=== PATIENT | female | born 1990 | race Caucasian/White ===

== ENCOUNTER 2023-04-17 03:02 | Inpatient (IN) ==
[2023-04-17] MEDS ORDERED: LACTATED RINGER'S 1,000 ML IV SCH ×2 (03:45→04:45)
[2023-04-17] MEDS ORDERED: TERBUTALINE SULFATE 1 MG/ML VIAL SQ STA (03:45)
[2023-04-17] MEDS ORDERED: CITRIC ACID/SODIUM CITRATE 15 ML UDC PO ONE (03:45)
--- NOTE | 2023-04-17 03:45 | History & Physical Report ---
Date of Service April 17, 2023 Assessment & Plan (1) Breech presentation: (2) Normal labor: (3) 38 weeks gestation of : Plan need to proceed with stat c/s. consent reviewed and signed. History of Present Illness Chief Complaint: rom Primary Care Provider: González Ayala, DO 33yo at 38+wks ega presents to L&D with rom and breech presentation for planned c/s. Called this am, noting leaking alot of yellow/green fluid, cramps only. Came into hospital noting more intense ctx and 5-6cm per nurse with gross rom. PNC c/b 1.ama, 2. breech 3. obesity 4. Depression on meds 5. rubella vaccine needed 6. hypothyroid PNL rhpos, ri, gbs neg Allergies Allergy/AdvReac Type Severity Reaction Status Date / Time No Known Allergies Allergy Verified 04/13/23 15:12 Home Medications Medication Instructions Recorded Confirmed Type bupropion HCl 150 mg 24 hr tablet, 300 mg PO QAM 09/26/22 04/17/23 History extended release prenat.vits,ashlee,[id number] 1 tab PO DAILY 09/26/22 04/17/23 History fluoxetine 20 mg capsule (Prozac) 60 mg PO DAILY 01/03/23 04/17/23 History levothyroxine 100 mcg tablet 100 mcg PO .COMPLEX #45 tabs 04/13/23 04/17/23 Rx Patient History Medical History Depression Encounter for IUD insertion Endometriosis IUD (intrauterine device) in place Surgical History Cholecystectomy planned H/O wisdom tooth extraction S/P laparoscopic procedure Family History Mother Kidney disease Hypertension Dyslipidemia Father Hypertension Denies family history of Ovarian cancer Prostate cancer Myocardial infarction Breast cancer Colorectal cancer Uterine cancer Social History Smoking Status: Never smoker Second Hand Exposure: No; Do You Dip or Chew Tobacco: No; Hx Alcohol Use: No Hx Substance Use: No Preferred Language: Kosovan Communication Ability: Effective Visual Impairment: No Limitations Hearing Ability: Normal Summer School Coordinator Required: No Beliefs That Will Affect Care: None marital status: Single marital status details: Joey (40) [phone] Current Living Situation: Significant Other Current Living Situation Comment: lives alone 1 dog, 1 cat, current occupational status: employed 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 Other Information That Helps Us Care for You: No Feels Safe at Home: Yes Safety Concerns: Feels Safe At This Time Childhood Exposure to Second-Hand Smoke: No Diet: Weight Watchers caffeine: Yes during the past year weight has: increased > 10 lbs Dental Care, Regularly: Yes Physical Activity Frequency: Does not Exercise Seatbelt Use: always Sunscreen Use: Yes Do you think of yourself as: straight/heterosexual Assistive Devices: None Review of Systems as per Subjective / HPI Physical Exam Constitutional: WD/WN, vitals as above Respiratory: normal respiratory effort, lungs clear to auscultation Cardiovascular: Rate/Rhythm: regular rate and regular rhythm Gastrointestinal (Abdomen): soft gravid nt Musculoskeletal: tr edema nontender calves Neurologic: grossly normal Psychiatric: A+Ox3, euthymic affect Genitourinary: Manual OB Exam: + cervical dilation (breech) 8 cm OB Exam Monitor Tracing: + external FHT monitor used, + external uterine monitor used, + category I and + normal FHT variability Results & Data Vital Signs (Past 12 Hours) Vital Signs Pulse Resp BP 04/17/23 03:24 20 04/17/23 03:18 79 154/72 H Coding Level of Care Code None Diagnoses Breech presentation O32.1XX0 Normal labor O80; Z37.9 38 weeks gestation of Z3A.38
[2023-04-17] MEDS ORDERED: TERBUTALINE SULFATE 1 MG/ML VIAL ONE (03:47)
[2023-04-17] MEDS ORDERED: fentaNYL citrate PF 100 MCG/2 ML VIAL ONE ×2 (03:55→04:14)
[2023-04-17 04:12] LABS: Basophils # (auto) 0.04 K/uL (0.00-0.20); Basophils % (auto) 0.4 %; Eosinophils # (auto) 0.06 K/uL (0.00-0.50); Eosinophils % (auto) 0.5 %; Hematocrit (blood only) 34.9 % (37.0-47.0); Hemoglobin 11.7 g/dl (12.0-16.0); Immature Granulocytes # (auto) 0.03 K/uL (0.01-0.20); Immature Granulocytes % (auto) 0.3 %; Lymphocytes # (auto) 2.29 K/uL (1.20-3.40); Lymphocytes % (auto) 20.8 %; Mean Corpuscular Hemoglobin 29.8 pg (25.0-34.0); Mean Corpuscular Hgb Conc 33.5 g/dL (32.0-36.0); Mean Platelet Volume 12.5 fL (9.4-12.4); Monocytes # (auto) 0.73 K/uL (0.11-0.59); Monocytes % (auto) 6.6 %; Neutrophils # (auto) 7.84 K/uL (1.40-6.50); Neutrophils % (auto) 71.4 %; Platelet Count 257 K/uL (130-400); RDW Coefficient of Variation 14.3 % (11.5-14.5); RDW Standard Deviation 46.5 fL (36.4-46.3); Red Blood Count 3.92 M/uL (4.20-5.40); White Blood Count 10.99 K/ul (4.8-10.8)
[2023-04-17] MEDS ORDERED: OXYTOCIN 10 UNITS/ML VIAL ONE (04:15)
[2023-04-17] MEDS ORDERED: PROPOFOL IV EMULSION 10 MG/ML 20 ML VIAL IV ONE (04:15)
[2023-04-17] MEDS ORDERED: ONDANSETRON INJ 2 MG/ML 2 ML VIAL ONE (04:15)
[2023-04-17] MEDS ORDERED: SUCCINYLCHOLINE CHLORIDE 20 MG/ML 10 ML VIAL IV ONE (04:15)
[2023-04-17] MEDS ORDERED: PROMETHAZINE HCL 6.25 MG in SODIUM CHLORIDE 0.9% 50 ML IV PRN (04:16)
[2023-04-17] MEDS ORDERED: ePHEDrine sulfate 50 MG/ML AMP IV PRN (04:16)
[2023-04-17] MEDS ORDERED: ONDANSETRON INJ 2 MG/ML 2 ML VIAL IV PRN ×2 (04:16→05:09)
[2023-04-17] MEDS ORDERED: fentaNYL citrate PF 100 MCG/2 ML VIAL IV PRN (04:16)
[2023-04-17] MEDS ORDERED: ATROPINE SULFATE 0.1 MG/ML 10ML SYR IV PRN (04:16)
[2023-04-17] MEDS ORDERED: HYDROmorphone INJ 1 MG/ML SYRINGE IV PRN (04:16)
--- NOTE | 2023-04-17 04:16 | Anesthesiology Consultation ---
Date of Service April 17, 2023 Assessment & Plan (1) Encounter for pre-operative examination: Chart Review Chart Review: Acceptable Risk for Surgery and Patient NOT seen in Pre Admission Testing Consults Requested none History Surgery Operation Date: 04/17/23 03:25 Proposed Procedures p Section in LD - Shirin James MD, FACOG Height/Weight Height: 5 ft 6 in Weight: 132.449 kg Allergies Allergy/AdvReac Type Severity Reaction Status Date / Time No Known Allergies Allergy Verified 04/13/23 15:12 Medications Home Medications Medication Instructions Recorded Confirmed Last Taken bupropion HCl 150 mg 24 hr tablet, 300 mg PO QAM 09/26/22 04/17/23 04/16/23 extended release 0800 prenat.vits,ashlee,[id number]-[id number] 1 tab PO DAILY 09/26/22 04/17/23 04/16/23 08:00 fluoxetine 20 mg capsule (Prozac) 60 mg PO DAILY 01/03/23 04/17/23 04/16/23 0800 levothyroxine 100 mcg tablet 100 mcg PO .COMPLEX #45 tabs 04/13/23 04/17/23 04/16/23 0800 Active Medications Generic Name Dose Route Start Last Admin Trade Name Freq PRN Reason Stop Dose Admin Cefazolin Sodium 72.5 mls @ 130 mls/hr 04/17/23 03:45 04/17/23 03:48 Ancef 3000mg IV 04/17/23 04:18 130 mls/hr ONE ONE Administration Protocol Lactated Ringer's 1,000 mls @ 125 mls/hr 04/17/23 04:45 04/17/23 03:48 Lr IV 05/17/23 04:44 999 mls/hr .Q8H KM Administration Past Medical History Medical History Depression Encounter for IUD insertion Encounter for pre-operative examination Endometriosis IUD (intrauterine device) in place Ericka 06/2019 Exercise / Class Metabolic Activity II 4-5 Yardwork/Stairs/Walk up hill Past Family History Family History Mother Kidney disease Hypertension Dyslipidemia Father Hypertension Denies family history of Ovarian cancer Prostate cancer Myocardial infarction Breast cancer Colorectal cancer Uterine cancer Past Surgical History Surgical History Cholecystectomy planned H/O wisdom tooth extraction S/P laparoscopic procedure endometriosis and left pelvic wall mass removal - records in [facility]scripts Social History Smoking Status: Never smoker Do You Dip or Chew Tobacco: No Hx Alcohol Use: No Hx Substance Use: No Physical Exam Vital Signs Last Vital Signs Temp 36.8 C 04/17/23 03:31 Pulse 79 04/17/23 03:18 Resp 18 04/17/23 03:31 BP 154/72 H 04/17/23 03:18 Testing Laboratory Results 04/17/23 03:55
[2023-04-17] MEDS ORDERED: SODIUM CHLORIDE 0.9% 250 ML IV PRN (04:35)
[2023-04-17] MEDS ORDERED: KETOROLAC 30 MG/ML VIAL ONE (04:35)
[2023-04-17] MEDS ORDERED: ALBUTEROL HFA 8 GM INHALER INH ONE (04:36)
--- NOTE | 2023-04-17 04:45 | Post Operative Brief Note ---
PG Immediate Post Op with CF Date of Surgery April 17, 2023 Pre & Post Diagnosis Operation Date: 04/17/23 03:25 <No data on this case meets the specified criteria> 1. 38 week iup 2. Breech presentation 3. SROM 4. Active Labor I identified the patient and participated in the time-out.: Yes Procedure Operation Date: 04/17/23 03:25 <No data on this case meets the specified criteria> Primary Low Transverse Section. Surgeon Shirin James MD, FACOG Radiology Therapist RN Estimated Blood Loss 600 Findings Consistent with Post-Op Diagnosis (viable female apgars pending. normal uterus tubes and ovaries bilaterally) Fluids 1000 Specimens Specimen Description: Placenta- hold cord blood Drains Do Catheter Anesthesia Type General Complications none Disposition Accompanied Patient To Recovery: No Disposition: L&D
--- NOTE | 2023-04-17 05:07 | Operative Report ---
PG Post Operative Report Pre & Post Diagnosis Operation Date: 04/17/23 03:25 <No data on this case meets the specified criteria> 1. 38+wks iup 2. Breech presentation 3. SROM 4. Rapid active labor I identified the patient and participated in the time-out.: Yes Procedure Operation Date: 04/17/23 03:25 <No data on this case meets the specified criteria> Primary Low Transverse Section Surgeon Shirin James MD, FACOG Feedmobile Driver RN Estimated Blood Loss 600 Findings Consistent with Post-Op Diagnosis (viable female apgars 7,9 normal uterus tubes and ovaries bilaterally) Fluids 1000 Specimens cord blood Drains gould Anesthesia Type General Complications none Disposition Accompanied Patient To Recovery: No Disposition: L&D Indications 33yo at 38wks with srom and labor and breech presentation, rapidly dilating, for stat section. Due to her rapid labor, im terbutaline was given prior to going to OR. Description of Procedure The patient was taken to the operating room and identified. A gould was placed and she was prepped and draped in the usual sterile fashion. Once induction of a nesthesia begun and ok from anesthesia to proceed, the knife was used to create a Pfannensteil skin incision that was carried down to the underlying layer of fascia. The fascia was nicked in the midline and this opening was extended laterally using Vernon scissors. Eric clamps were placed on the superior and inferior aspect of the fascial incision tenting it upward and the underlying rectus muscles were dissected off the overlying fascia both sharply and bluntly using Vernon scissors. The rectus muscles were bluntly in the midline. The peritoneal cavity was bluntly entered into. This opening was stretched. The bladder blade was placed. The vesicouterine peritoneum was elevated and opened up into and the bladder flap was created digitally and bladder blade was replaced. The knife was used to create a hysterotomy and this opening was stretched. The operators hand was placed through the hysterotomy and the bladder blade was removed. The buttocks was elevated and with fundal pressure was delivered to level of the scapulae. The arms were swept across the anterior midline and the head was flexed and delivered. Meconium stained fluid noted. The cord was clamped and cut and the infant's mouth and nares were bulb suction. The infant was handed off to the awaiting pediatricians. Cord blood was obtained. The placenta was manually expressed. The uterus was exteriorized and cleared of all clots and debris. Dilute IV Pitocin was begun. The uterine tone was improving but still boggy and so im hemabate given into uterine muscle after bp checked. The hysterotomy was closed in a running interlocking fashion using 0 Vicryl followed by a second imbricating layer of 0 Vicryl. The hysterotomy was not hemostatic at the right corner where an additional figure of eight suture of 2-0 vicryl was placed for excellent hemostasis. The pelvis was suctioned for any fluid/blood. The uterus was returned to the abdomen. The gutters were cleared of all clots and debris. The hysterotomy was reinspected and noted to be hemostatic. The fascia was then closed in running fashion using 0 Vicryl. The subcutaneous fat was copiously irrigated and reapproximated using 2-0 chromic. The skin was closed in a subcuticular fashion using 4-0 monocryl. At this point the procedure was terminated. The patient was extubated and transferred to the recovery room in stable condition. All sponge, lap and needle counts are correct x2. I attest to the content of the Intraoperative Record and any orders documented therein. Any exceptions are noted below. OB Procedure Charges 95657
[2023-04-17] MEDS ORDERED: SENNA 8.6 MG TAB PO PRN (05:09)
[2023-04-17] MEDS ORDERED: oxyCODONE/ACETAMINOPHEN 5mg/325mg TAB PO PRN (05:09)
[2023-04-17] MEDS ORDERED: MAGNESIUM HYDROXIDE SUSP 30 ML UDC PO PRN (05:09)
[2023-04-17] MEDS ORDERED: MEASLES, MUMPS & RUBELLA VIRUS VIAL SQ ONE (05:09)
[2023-04-17] MEDS ORDERED: BENZOCAINE 20% SPRY 85 APPLN/85 GM CAN EXT PRN (05:09)
[2023-04-17] MEDS ORDERED: PROMETHAZINE HCL 25 MG in SODIUM CHLORIDE 0.9% 50 ML IV PRN (05:09)
[2023-04-17] MEDS ORDERED: diphenhydrAMINE Capsule 25 MG CAP PO PRN (05:09)
[2023-04-17] MEDS ORDERED: diphenhydrAMINE 50 MG/ML VIAL IV PRN (05:09)
[2023-04-17] MEDS ORDERED: HYDROCORTISONE ACETATE 25 MG SUPP PR PRN (05:09)
[2023-04-17] MEDS ORDERED: ZOLPIDEM TARTRATE 5 MG TAB PO PRN (05:09)
[2023-04-17] MEDS ORDERED: NALOXONE HCL 0.4 MG/1 ML VIAL/CARP IV PRN (05:09)
[2023-04-17] MEDS ORDERED: SODIUM CHLORIDE 0.9% 1000ML 1,000 ML IV SCH (05:09)
[2023-04-17] MEDS ORDERED: DIPHTHERIA/TETANUS/PERTUSSIS Vaccine (Tdap, Age 7+yrs) 0.5mL SYR/VL IM ONE (05:09)
--- NOTE | 2023-04-17 05:09 | Anesthesiology Progress Note ---
Date of Service April 17, 2023 Anesthesia Post Procedure Vital Signs Vital Signs: Temp Pulse Resp BP Pulse Ox 04/17/23 03:24 20 04/17/23 05:04 76 120/58 L 04/17/23 05:03 78 100 04/17/23 04:58 80 96 04/17/23 04:53 82 130/77 96 04/17/23 03:31 18 04/17/23 03:31 36.8 C 18 04/17/23 03:18 79 154/72 H Transfer of Care Handoff Completed per policy Notes Mental Status: alert / awake / arousable and participated in evaluation Patient Amnestic to Procedure: Yes Nausea / Vomiting: adequately controlled Pain: adequately controlled Airway Patency, RR, SpO2: stable & adequate BP & HR: stable & adequate Hydration State: stable & adequate Anesthetic Complications: no major complications apparent and Pt Satisfied with anesthetic care
[2023-04-17] MEDS: OXYTOCIN 20 UNITS in LACTATED RINGER'S 1,000 ML IV SCH ×2 (05:25→14:01)
[2023-04-17] MEDS: HYDROmorphone PCA 30 MG/30 ML IV PRN ×2 (05:42→07:04)
[2023-04-17] MEDS: LEVOTHYROXINE SODIUM 100 MCG TABLET PO SCH (08:31)
[2023-04-17] MEDS: PRENATAL VITAMIN 1 TAB PO SCH (08:48)
[2023-04-17] MEDS: FERROUS SULFATE 325 MG TAB PO SCH (08:48)
[2023-04-17] MEDS: DOCUSATE SODIUM 100 MG CAP PO SCH ×2 (08:48→20:38)
[2023-04-17] MEDS: buPROPion XL 300 MG TABCR PO SCH (08:49)
[2023-04-17] MEDS: SIMETHICONE 80 MG CHEW PO SCH ×4 (08:49→20:38)
[2023-04-17] MEDS: FLUoxetine HCL 20 MG CAP PO SCH (08:49)
[2023-04-17] MEDS: IBUPROFEN 600 MG TAB PO PRN (20:37)
--- NOTE | 2023-04-18 01:47 | Obstetrical Progress Note ---
Date of Service April 18, 2023 Assessment & Plan (1) S/P : Plan: encourage ambulation pain control Admission and Anticipated Discharge Date Admission Date: April 17, 2023 Supervising Physician Co-Signing Physician Notes Patient seen with resident and agree with the above findings and plan. Routine care Subjective 33 yo PMHx hypothyroidism, depression post day 1 s/p Ambulation: ambulating normally Voiding: no voiding problems Passing Gas:: Yes Diet Tolerance:: regular diet Lochia:: Small Feeding Type:: breast feeding Current Pain Level: minimal Resting comfortably this am. Denies HUMPHREY, CP, SOB, N/V/D, LE swelling Review of Systems Review of Systems: reviewed, per hpi Physical Exam Physical Exam: General: patient resting comfortably, NAD, non-toxic in appearance, AA&O x 4, answers questions appropriately. Skin: warm, dry, intact HEENT: NC/AT, anicteric sclera, conjunctiva without injection, moist mucus membranes. Lungs: equal air entry bilaterally, no rales/rhonchi/wheezes Abd: +BS, soft, NT/ND, uterine fundus firm at umbilicus, caesarean incision C/D/I Ext: warm, no clubbing/cyanosis or edema, Melody's neg Neuro: nonfocal, patient AA&O x 4, speech intact, no facial droop, moving all extremities on command. Results & Data Vital Signs (Past 12 Hours) Vital Signs Temp Pulse Resp BP BP Pulse Ox O2 Del Method 04/17/23 23:12 37 C 88 18 113/75 99 Room Air 04/17/23 20:20 37.3 C 88 18 123/78 96 Room Air 04/17/23 18:15 18 92 04/17/23 17:15 16 93 04/17/23 16:20 18 96 04/17/23 15:20 37.5 C 89 16 119/79 Room Air 04/17/23 15:20 18 92 04/17/23 14:05 18 92 Resident Activity Tracking Resident Involvement: Resident Care Provided Care Provided: Adult Hospital Medicine
[2023-04-18] MEDS: IBUPROFEN 600 MG TAB PO PRN ×4 (04:03→20:14)
[2023-04-18 06:50] LABS: Basophils # (auto) 0.03 K/uL (0.00-0.20); Basophils % (auto) 0.3 %; Eosinophils # (auto) 0.05 K/uL (0.00-0.50); Eosinophils % (auto) 0.5 %; Hematocrit (blood only) 27.1 % (37.0-47.0); Hemoglobin 8.9 g/dl (12.0-16.0); Immature Granulocytes # (auto) 0.04 K/uL (0.01-0.20); Immature Granulocytes % (auto) 0.4 %; Mean Corpuscular Hemoglobin 29.3 pg (25.0-34.0); Mean Corpuscular Hgb Conc 32.8 g/dL (32.0-36.0); Mean Corpuscular Volume 89.1 fL (80.0-100.0); Mean Platelet Volume 11.8 fL (9.4-12.4); Monocytes # (auto) 0.57 K/uL (0.11-0.59); Monocytes % (auto) 5.7 %; Neutrophils # (auto) 8.14 K/uL (1.40-6.50); Neutrophils % (auto) 81.1 %; Platelet Count 207 K/uL (130-400); RDW Coefficient of Variation 14.4 % (11.5-14.5); RDW Standard Deviation 46.7 fL (36.4-46.3); Red Blood Count 3.04 M/uL (4.20-5.40); White Blood Count 10.03 K/ul (4.8-10.8)
[2023-04-18] MEDS: LEVOTHYROXINE SODIUM 100 MCG TABLET PO SCH (06:57)
[2023-04-18] MEDS: PRENATAL VITAMIN 1 TAB PO SCH (07:58)
[2023-04-18] MEDS: SIMETHICONE 80 MG CHEW PO SCH ×4 (07:58→20:14)
[2023-04-18] MEDS: DOCUSATE SODIUM 100 MG CAP PO SCH ×2 (07:58→20:14)
[2023-04-18] MEDS: buPROPion XL 300 MG TABCR PO SCH (07:58)
[2023-04-18] MEDS: FERROUS SULFATE 325 MG TAB PO SCH (07:58)
[2023-04-18] MEDS: FLUoxetine HCL 20 MG CAP PO SCH (07:59)
[2023-04-19] MEDS ORDERED: bisacodyL 10 MG SUPP PR PRN (04:55)
--- NOTE | 2023-04-19 06:00 | Obstetrical Progress Note ---
Date of Service April 19, 2023 Assessment & Plan (1) S/P : Plan: encourage ambulation pain control d/c today Admission and Anticipated Discharge Date Admission Date: April 17, 2023 Supervising Physician Co-Signing Physician Notes Resident Physician Supervision Note: I interviewed and examined the patient. Discussed with Dr. Rob and agree with findings and plan as documented in the note. Any exceptions or clarifications are listed here: POD2 doing well. Desires DC home today. Has been using ibuprofen/tylenol during hospital stay, and does not desire an Rx for opioid pain medication. Reviewed postop instructions, followup 6w PP. Documented By: Orin Ryan, Subjective 33 yo PMHx hypothyroidism, depression post day 2 s/p Ambulation: ambulating normally Voiding: no voiding problems Passing Gas:: Yes Diet Tolerance:: regular diet Lochia:: Small Feeding Type:: breast feeding Current Pain Level: minimal Resting comfortably this am. Denies HUMPHREY, CP, SOB, N/V/D, LE swelling Review of Systems Review of Systems: reviewed, per hpi Physical Exam Physical Exam: General: patient resting comfortably, NAD, non-toxic in appearance, AA&O x 4, answers questions appropriately. Skin: warm, dry, intact HEENT: NC/AT, anicteric sclera, conjunctiva without injection, moist mucus membranes. Lungs: equal air entry bilaterally, no rales/rhonchi/wheezes Abd: +BS, soft, NT/ND, uterine fundus firm at umbilicus, caesarean incision C/D/I Ext: warm, no clubbing/cyanosis or edema, Melody's neg Neuro: nonfocal, patient AA&O x 4, speech intact, no facial droop, moving all extremities on command. Results & Data Vital Signs (Past 12 Hours) Vital Signs Temp Pulse Resp BP Pulse Ox O2 Del Method 04/19/23 00:14 37.0 C 96 H 16 131/85 97 Room Air 04/18/23 20:00 36.9 C 92 H 16 117/79 96 Room Air Resident Activity Tracking Resident Involvement: Resident Care Provided Care Provided: Adult Hospital Medicine
[2023-04-19] MEDS: LEVOTHYROXINE SODIUM 100 MCG TABLET PO SCH (07:08)
[2023-04-19 09:24] LABS: Hematocrit (blood only) 29.5 % (37.0-47.0); Hemoglobin 9.6 g/dl (12.0-16.0)
[2023-04-19] MEDS: SIMETHICONE 80 MG CHEW PO SCH (09:45)
[2023-04-19] MEDS: FERROUS SULFATE 325 MG TAB PO SCH (09:45)
[2023-04-19] MEDS: PRENATAL VITAMIN 1 TAB PO SCH (09:45)
[2023-04-19] MEDS: IBUPROFEN 600 MG TAB PO PRN (09:45)
[2023-04-19] MEDS: DOCUSATE SODIUM 100 MG CAP PO SCH (09:45)
[2023-04-19] MEDS: FLUoxetine HCL 20 MG CAP PO SCH (09:47)
[2023-04-19] MEDS: buPROPion XL 300 MG TABCR PO SCH (09:47)
--- NOTE | 2023-04-20 14:23 | Discharge Summary ---
Date of Service Date of admission: April 17, 2023 Date of discharge: April 19, 2023 Admission HPI Per Admitting Provider 33yo at 38+wks egdulce presents to L&D with rom and breech presentation for planned c/s. Called this am, noting leaking alot of yellow/green fluid, cramps only. Came into hospital noting more intense ctx and 5-6cm per nurse with gross rom. PNC c/b 1.ama, 2. breech 3. obesity 4. Depression on meds 5. rubella vaccine needed 6. hypothyroid PNL rhpos, ri, gbs neg Discharge Data Consultations 04/17/23 03:31 Consult Anesthesiology Stat Procedures Performed Operation Date: 04/17/23 03:25 Actual Procedures p Primary Low Transverse Section in LD of live female @ 0406(Bilateral) - Shirin James MD, [facility] [place] Hospital Course (1) 38 weeks gestation of : (2) Normal labor: (3) Breech presentation: (4) S/P : Plan The patient underwent the above stated procedure without incident and her postoperative course and recovery was uncomplicated. On her postoperative day #2 she was tolerating a regular diet, voiding spontaneously, ambulating without problem and was using oral meds for adequate pain control. Her postoperative hemoglobin was 9.6. She was given written and verbal discharge instructions and told to followup in office at 6wks. She was given appropriate pain medicine prescriptions. She had known history of depression and was continuing her meds. Coding Level of Care Code None Diagnoses 38 weeks gestation of Z3A.38 Normal labor O80; Z37.9 Breech presentation O32.1XX0 S/P Z98.891
[2023-04-22] MEDS ORDERED: LEVOTHYROXINE SODIUM 200 MCG TABLET PO SCH (06:30)
== END 2023-04-19 12:00 | disposition home or self-care (01) | DRG 788 ==
LOC: OPB 03:02 → 4S1 03:05 → 4E2 07:44
DX: Z3A.38 38 weeks gestation of pregnancy; O32.1XX0 Maternal care for breech presentation, not applicable or unspecified; F32.9 Major depressive disorder, single episode, unspecified; O99.280 Endocrine, nutritional and metabolic diseases complicating pregnancy, unspecified trimester; Z37.0 Single live birth; O99.340 Other mental disorders complicating pregnancy, unspecified trimester; E03.9 Hypothyroidism, unspecified